=== PATIENT | female | born 1990 | race Caucasian/White ===

== ENCOUNTER 2023-07-23 20:47 | Emergency (ER) | payer OTHER, SELFPAY ==
[2023-07-23 20:49] VITALS: BP 119/78; PULSE 88; RESP 20; TEMP 36.5; O2SAT 100
--- NOTE | 2023-07-23 22:01 | ED.EYEPROB ---
HPI - Eye Problem General Chief complaint: Eye Problems Stated complaint: left eye dilated Time Seen by Provider: 07/23/23 21:44 History of Present Illness HPI Narrative: 33-year-old female presents to emergency department with a dilated left pupil that she noticed around 5:00 p.m.. Patient states she wears contacts and Janene like something was in her contacts, then she rinsed her contact with Visine which she brought with her. States she then put her contacts back and in her son noticed that her pupil was enlarged in after what was wrong. States she came to the ED for further evaluation. States this is never happened her before. She does state that she has some sensitivity to light denying some blurred vision. She has since taken her contacts out and I both of her eyes are blurred. She denies headache, head injury, focal numbness or weakness, fever, ocular injury. She brought the Visine bottle with her which lists antihistamines on the ingredient list. She also notes that she was seen at another ER couple weeks ago for lightheadedness and at that time she had a CT of her brain which was negative. Related Data Allergies Allergy/AdvReac Type Severity Reaction Status Date / Time Sulfa (Sulfonamide AdvReac Rash Verified 07/23/23 21:00 Antibiotics) Review of Systems Review of Systems: CONSTITUTIONAL: Denies fever, chills, or sweats. EYES: See HPI ENT: Denies rhinorrhea, congestion, sore throat, or otalgia. CARDIOVASCULAR: Denies chest pain, palpitations, or edema. RESPIRATORY: Denies cough or dyspnea. GASTROINTESTINAL: Denies abdominal pain, nausea, vomiting, or diarrhea. GENITOURINARY: Denies dysuria or hematuria. SKIN: Denies rash or itching. MUSCULOSKELETAL: Denies back pain, joint pain, or myalgia. NEUROLOGIC: Denies headache, numbness, or weakness. PSYCHIATRIC: Denies anxiety or depression. Exam Narrative: GENERAL: Well-appearing, well-nourished, and in no acute distress. HEAD: Normocephalic, atraumatic. EYES: Left eye mydriasis when compared to the right. Both pupils are round and reactive to light and accommodation in light and dark. Extraocular movements intact. No ptosis. ENT: Nares clear, no rhinorrhea or epistaxis. Mucous membranes moist. NECK: Supple. CHEST: Clear to auscultation. No respiratory distress. HEART: Regular rate and rhythm. No murmur heard. Normal peripheral pulses. EXTREMITIES: Normal range of motion. No edema. SKIN: Warm, dry, no rash. NEURO: No focal deficits. Alert and oriented x3. Cranial nerves 2-12 intact. Strength 5/5 in BUE and BLE. Sensation intact throughout. Normal [id number]. No pronator drift. Course Vital Signs Vital signs: Vital Signs Temperature 97.7 F 07/23/23 20:49 Pulse Rate 88 07/23/23 20:49 Respiratory Rate 20 07/23/23 20:49 Blood Pressure 119/78 07/23/23 20:49 Pulse Oximetry 100 07/23/23 20:49 Oxygen Delivery Room Air 07/23/23 20:49 Temperature 97.7 F 07/23/23 20:49 Pulse Rate 88 07/23/23 20:49 Respiratory Rate 20 07/23/23 20:49 Blood Pressure 119/78 07/23/23 20:49 Pulse Oximetry 100 07/23/23 20:49 Oxygen Delivery Room Air 07/23/23 20:49 MDM - Eye Problem MDM Narrative Medical decision making narrative: 33-year-old female presents emergency department with a dilated left pupil that her son noticed around 5:00 p.m. after she used Visine with antihistamine to rinse her contact. Triage vitals stable. Left pupil is enlarged when compared to the right, however both pupils are round and reactive to light and accommodation in the light and dark. Extraocular movements are intact. She is otherwise neurovascularly intact. No head injury or trauma, no ocular injury. She did have a recent head CT scan in the past 2 weeks at another ED which she states was unremarkable. Mydriasis is likely secondary to topical antihistamine property in the Visine. I discussed obtaining further workup including advanced imagi
== END 2023-07-23 22:14 | disposition home or self-care (01) ==
PROVIDERS: Emergency Provider Physician Assistant
DX: H57.04 Mydriasis (principal)
CPT/HCPCS: 99282